=== PATIENT | female | born 1985 ===

== ENCOUNTER → 2024-09-12 | Outpatient (CLI) | payer MEDICAID ==
--- NOTE | 2024-09-12 18:47 | RADIOLOGY REPORT ---
PROCEDURE: MR MRI HEAD INDICATION: REVERSIBLE CEREBROVASCULAR VASOCONSTRICTION SYNDROME EXAM DATE: 09/12/2024 01:35 PM COMPARISON: None TECHNIQUE: MRI of the brain without intravenous contrast. FINDINGS: Diffusion weighted images of the brain demonstrate no evidence of acute infarction. There is no evidence of acute intracranial hemorrhage, extra-axial collection, mass effect, midline s hift, herniation or hydrocephalus. The ventricles, sulci and cisterns appear age appropriate. The signal intensities of the brain parenchyma are within normal limits. Partially empty sella. There are no signal abnormalities on the susceptibility weighted sequences. The major vascular flow voids are present. The visualized paranasal sinuses and mastoid air cells are clear. The surrounding soft tissues and o sseous structures are unremarkable. IMPRESSION: 1. No evidence of acute infarction, intracranial hemorrhage, mass effect or hydrocephalus. Partially empty sella. HS:Y
== END | disposition home or self-care (01) ==
LOC: MRI02 13:12
PROVIDERS: ATTEND Nurse Practitioner Family
DX: I67.841 Reversible cerebrovascular vasoconstriction syndrome (principal)
CPT/HCPCS: 70551